=== PATIENT | female | born 2000 | race Two or more races ===

== ENCOUNTER 2023-02-18 09:00 | Emergency (ER) | payer SELFPAY ==
[2023-02-18] MEDS ORDERED: ONDANSETRON 4 MG/2 ML VIAL ONE (09:23)
[2023-02-18] MEDS ORDERED: NA CHLORIDE 0.9% 1,000 ML ONE (09:23)
--- NOTE | 2023-02-18 09:33 | EDPHYS ---
Physician Documentation [facility] Name: Malik Miguel Age: 22 yrs Sex: Female : 2000 Arrival Date: 02/18/2023 Time: 09:00 Bed 1 Private MD: ED Physician Ronald hWyte HPI: 02/18 09:28 This 22 yrs old Female presents to ER via Ambulatory with complaints of 36 Weeks bs3 , Poss Labor. 09:28 The patient presents to the emergency department with possible uterine contractions, bs3 today, abdominal pain, of the suprapubic area. 22-year-old female 36 weeks presents with contractions small amount of discharge unsure when the contractions started no care but saw the emergency department at [facility] last week she notes intermittent contractions for the past several hours. 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 - Social history:: Smoking status: Patient denies any tobacco usage or history of. Patient/guardian denies using alcohol. ROS: 09:28 Constitutional: Negative for fever, chills bs3 09:28 All other systems are negative. Exam: 09:28 Constitutional: This is a well developed, well nourished patient who is awake, alert, bs3 and in no acute distress. Head/Face: Normocephalic, atraumatic. Eyes: Pupils equal round and reactive to light, extra-ocular motions intact. Lids and lashes normal. ENT: mmm, no posterior phyarngeal erythema Neck: Trachea midline, no thyromegaly, no neck stiffness Chest/axilla: Normal chest wall appearance and motion. Nontender with no deformity. No lesions are appreciated. Cardiovascular: Regular rate and rhythm with a normal S1 and S2. symmetric pulses in upper extremities Respiratory: Lungs have equal breath sounds bilaterally, clear to auscultation, no respiratory distress Abdomen/GI: gravid abdomen Pelvic Exam: cervix still long, finger tip dilated Skin: Warm, dry with normal turgor. Normal color with no rashes, no lesions, and no evidence of cellulitis. MS/ Extremity: Pulses equal, no cyanosis. Neurovascular intact. Full, normal range of motion. Neuro: Awake and alert, GCS 15, oriented to person, place, time, and situation. Cranial nerves II-XII grossly intact. Motor strength 5/5 in all extremities. Sensory grossly intact. Vital Signs: 09:22 BP 128 / 93; Pulse 60; Resp 15; Temp 97.9(TE); Pulse Ox 100% on R/A; Height 5 ft. 6 in. ld1 ; 09:29 Weight 117.93 kg; ld1 09:29 Body Mass Index 41.96 (117.93 kg, 167.64 cm) ld1 MDM: 09:28 Data reviewed: vital signs, nurses notes. ED course: Patient in active labor, given bs3 Zofran for nausea given IV fluid patient is GBS positive will transfer immediately to closest facility with SKIP MINER given lack of capacity there are no current presenting part therefore will not deliver here, d/w Dr. Stone . 09:32 Patient medically screened. bs3 02/18 09:37 Order name: Glucose, Ancillary Testing EDMS Administered Medications: 09:30 Drug: Ondansetron IVP 4 mg Route: IVP; Site: right antecubital; kc6 09:55 Follow up: Response: No adverse reaction; Nausea is decreased kc6 Disposition Summary: 02/18/23 09:32 Transfer Ordered Transfer Location: [facility] bs3 Reason: Higher level of care bs3 Condition: Fair bs3 Problem: new bs3 Symptoms: have improved bs3 Accepting Physician: Bertha(02/18/23 10:15) kc6 Diagnosis - Precipitate labor bs3 Discharge Instructions: - Discharge Summary Sheet eb Forms: - SBAR form eb - Medication Reconciliation Form bs3 Signatures: Leigh Ann Bella RN RN ld1 Yenny Macias RN RN kc6 Ronald Whyte MD MD bs3 Corrections: (The following items were deleted from the chart) 10:15 09:32 Bertha bs3 kc6
--- NOTE | 2023-02-18 09:33 | ER ---
Nurse's Notes [facility] Name: Malik Miguel Age: 22 yrs Sex: Female : 2000 Arrival Date: 02/18/2023 Time: 09:00 Bed 1 Private MD: Diagnosis: Precipitate labor Presentation: 02/18 09:23 Chief complaint: Patient states: Contractions began last night. Upon arrival to ER pt ld1 reports contractions. Coronavirus screen: At this time, the client does not indicate any symptoms associated with coronavirus-19. Ebola Screen: No symptoms or risks identified at this time. Initial Sepsis Screen: Does the patient meet any 2 criteria? No. Patient's initial sepsis screen is negative. Does the patient have a suspected source of infection? No. Patient's initial sepsis screen is negative. Risk Assessment: Do you want to hurt yourself or someone else? Patient reports no desire to harm self or others. Onset of symptoms was February 18, 2023. 09:23 Method Of Arrival: Ambulatory ld1 09:23 Acuity: KIYA 2 ld1 Triage Assessment: 09:24 General: Appears in no apparent distress. comfortable, Behavior is calm, cooperative, ld1 appropriate for age. Pain: Complains of pain in abdomen Pain does not radiate. Pain currently is 8 out of 10 on a pain scale. Quality of pain is described as crampy. EENT: No signs and/or symptoms were reported regarding the EENT system. Neuro: Level of Consciousness is awake, alert, obeys commands, Oriented to person, place, time, situation. Cardiovascular: Capillary refill < 3 seconds Patient's skin is warm and dry. Rhythm is sinus rhythm. Respiratory: Airway is patent Respiratory effort is even, unlabored. GI: Abdomen is round Reports cramping, nausea. : Reports Vaginal fluid - possible water broke. Derm: No signs and/or symptoms reported regarding the dermatologic system. Musculoskeletal: No signs and/or symptoms reported regarding the musculoskeletal system. 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 - Social history:: Smoking status: Patient denies any tobacco usage or history of. Patient/guardian denies using alcohol. Screenin:20 [facility] ED Fall Risk Assessment (Adult) History of falling in the last 3 months, ld1 including since admission No falls in past 3 months (0 pts). Abuse screen: Denies threats or abuse. Denies injuries from another. Nutritional screening: No deficits noted. Tuberculosis screening: No symptoms or risk factors identified. Assessment: 09:20 Reassessment: ERP at bedside providing care - vaginal exam completed. Pt reporting ld1 contractions every 2 min - lasting 1 minute in length. C/O nausea, vomiting at this time. 09:24 Reassessment: Pt reports intercourse during June, Menstrual cycle irregular. ld1 09:28 Reassessment: See triage assessment. ld1 09:28 Reassessment: FSBS = 84. kc6 Vital Signs: 09:22 BP 128 / 93; Pulse 60; Resp 15; Temp 97.9(TE); Pulse Ox 100% on R/A; Height 5 ft. 6 in. ld1 ; 09:29 Weight 117.93 kg; ld1 09:29 Body Mass Index 41.96 (117.93 kg, 167.64 cm) ld1 ED Course: 09:01 Patient arrived in ED. rg4 09:05 initiated a transfer with Bebe from the [facility] Transfer Center. eb 09:06 Ronald Whyte MD is Attending Physician. eb 09:10 connected the OBGYN home health clinical liaison for [facility] with Dr. Whyte for patient transfer eb consultation. 09:14 administrative approval given by Bebe Ahn. patient has been accepted to [facility] L\T\D Triage/ Dr. Juanis Ahn has accepted the patient in triage. 09:20 Patient has correct armband on for positive identification. Placed in gown. Bed in low ld1 position. Call light in reach. Side rails up X2. site monitor on. Pulse ox on. NIBP on. Door closed. Noise minimized. Warm blanket given. 09:20 Inserted saline lock: 20 gauge in left antecubital area, using aseptic technique. Blood ld1 collected. 09:20 Inserted saline lock: 20 gauge in right forearm, using aseptic technique. ld1 09:22 Leigh Ann Bella, RN is Primary Nurse. ld1 09:24 Triage completed. ld1 09:27 Arm band placed on right wrist. ld1 09:55 Assist provider with pelvic exam: Performed by Ronald Whyte MD Patient tolerated well. kc6 Patient transferred, IV remains in place. Administered Medications: 09:30 Drug: Ondansetron IVP 4 mg Route: IVP; Site: right antecubital; kc6 09:55 Follow up: Response: No adverse reaction; Nausea is decreased kc6 Medication: 09:55 VIS not applicable for this client. kc6 Outcome: 09:32 ER care complete, transfer ordered by . bs3 09:55 Transferred by ground EMS to [facility], Transfer form kc6 completed. Note: report called to BLAYNE Tanner 09:55 Condition: stable 09:55 Instructed on the need for transfer. kc6 10:15 Patient left the ED. kc6 Signatures: Lara Bagley rg4 Aretha Curry Lauren, RN RN ld1 Yenny Macias RN RN kc6 Ronald Whyte MD MD bs3 Corrections: (The following items were deleted from the chart) 09:35 09:24 LMP 06/2022 ld1 ld1
[2023-02-18 10:26] VITALS: BP 128/93; TEMP 97.9; O2SAT 100
== END 2023-02-18 10:15 | disposition short-term general hospital (02) ==
LOC: ER 09:00
DX: O62.3 Precipitate labor (principal); Z3A.36 36 weeks gestation of pregnancy
CPT/HCPCS: 82947; 96374; 99285; J2405; J7030